=== PATIENT | female | born 1950 | race Two or more races ===

== ENCOUNTER 2020-02-18 23:30 | Inpatient (IN) | payer MEDICAID, OTHER ==
[~2020-02-18] VITALS: Ht 162.6 cm; Wt 70.8 kg
[2020-02-19 00:54] LABS: HEMATOCRIT. 32.9 % (36.0-48.0); HEMOGLOBIN. 10.6 g/dL (12.0-16.0); MEAN CORPUSCULAR HEMOGLOBIN 26.1 pg (28.0-32.0); MEAN CORPUSCULAR VOLUME 80.7 fL (81.0-99.0); MEAN PLATELET VOLUME 9.2 fl (7.4-10.4); PLATELET 445 x1000/uL (130-400); RED BLOOD CELL COUNT 4.08 mill/uL (4.2-5.4); RED CELL DISTRIBUTION WIDTH 15.2 % (11.6-14.6)
[2020-02-19 01:01] LABS: CHLORIDE 98 mEq/L (98-107)
[2020-02-19 01:03] LABS: PROTHROMBIN TIME 10.1 sec (9.6-11.0)
[2020-02-19] MEDS ORDERED: SODIUM CHLORIDE 0.9% 1000ML BAG (SEPSIS BOLUS) IV ONE (02:00)
[2020-02-19] MEDS ORDERED: CEFTRIAXONE 1 G PREMIX 50 ML IV ONE (02:00)
[2020-02-19 05:21] LABS: PLATELET ESTIMATE INCREASED
[2020-02-19] MEDS ORDERED: CEFTRIAXONE 2 G PREMIX 50 ML IV SCH (06:00)
[2020-02-19] MEDS ORDERED: DEXTROSE 50% WATER 50ML SYRINGE IV PRN (06:00)
[2020-02-19] MEDS ORDERED: ONDANSETRON HCL 4MG/2ML INJ IV PRN (06:00)
[2020-02-19 07:07] VITALS: BP 166/77
[2020-02-19] MEDS: INSULIN LISPRO 100 UNITS/ML SUBCUT SCH ×4 (07:55→20:30)
[2020-02-19 08:00] VITALS: BP_SYST 139; BP_SYST 151; BP_SYST 159; BP_DIAS 71; BP_DIAS 77; BP_DIAS 84
[2020-02-19] MEDS: BLOOD SUGAR DIAGNOSTIC STRIP TEST SCH ×4 (08:08→20:06)
[2020-02-19] MEDS ORDERED: ATOR10TA69 PO (08:21)
[2020-02-19] MEDS ORDERED: TAMS-11 PO (08:21)
[2020-02-19] MEDS ORDERED: TAMSULOSIN HCL 0.4MG SR CAPSULE PO SCH (09:00)
[2020-02-19] MEDS ORDERED: AMLODIPINE 5MG TABLET PO SCH (09:00)
[2020-02-19 09:05] LABS: BASOPHILS % 0.6 % (0.0-2.0); EOSINOPHILS % 1.7 % (0.0-5.0); HEMATOCRIT. 31.6 % (36.0-48.0); HEMOGLOBIN. 10.2 g/dL (12.0-16.0); LYMPHOCYTES % 15.5 % (20.0-50.0); MEAN CORPUSCULAR VOLUME 80.2 fL (81.0-99.0); MEAN PLATELET VOLUME 9.1 fl (7.4-10.4); MONOCYTES % 4.7 % (2.0-8.0); NEUTROPHILS % 77.5 % (40.0-76.0); PLATELET 433 x1000/uL (130-400); RED BLOOD CELL COUNT 3.93 mill/uL (4.2-5.4); RED CELL DISTRIBUTION WIDTH 14.9 % (11.6-14.6)
[2020-02-19 09:10] LABS: CHLORIDE 98 mEq/L (98-107)
[2020-02-19] MEDS: ACETAMINOPHEN 325MG TABLET PO PRN (09:34)
[2020-02-19] MEDS: HEPARIN 5000 UNITS/ML VIAL SUBCUT SCH ×2 (09:35→20:15)
[2020-02-19] MEDS ORDERED: SODIUM CHLORIDE 0.9% 1,000 ML IV SCH (11:15)
[2020-02-19] MEDS ORDERED: MAGNESIUM HYDROXIDE 400MG/5ML 30ML UDC PO PRN (11:30)
[2020-02-19] MEDS ORDERED: DOCUSATE SODIUM 100MG CAPSULE PO PRN (11:30)
[2020-02-19 12:00] VITALS: BP 142/70
[2020-02-19] MEDS: SODIUM CHLORIDE 0.45% 1,000 ML IV SCH (12:33)
[2020-02-19] MEDS: INSULIN GLARGINE UD 100 UNITS/ML SYR SUBCUT SCH (13:38)
[2020-02-19 15:54] LABS: CLARITY URINE CLOUDY (CLEAR); COLOR URINE ORANGE (YELLOW); KETONES URINE NEGATIVE (NEGATIVE); LEUKOCYTE ESTERASE URINE 3+ (NEGATIVE); NITRITE URINE POSITIVE (NEGATIVE); OCCULT BLOOD URINE 3+ (NEGATIVE); PROTEIN URINE 2+ (NEGATIVE); SPECIFIC GRAVITY URINE 1.008 (1.005-1.030)
[2020-02-19 16:00] VITALS: BP 133/70
[2020-02-19 20:00] VITALS: BP_SYST 143; BP_SYST 144; BP_DIAS 70; BP_DIAS 71
[2020-02-19] MEDS ORDERED: SENNOSIDES/DOCUSATE SOD 8.6/50MG TABLET PO PRN (21:00)
[2020-02-20] VITALS: BP 137/73
[2020-02-20] MEDS ORDERED: CEFTRIAXONE 2 G in DEXTROSE 5% WATER 50 ML IV SCH (01:00)
[2020-02-20] MEDS: SODIUM CHLORIDE 0.45% 1,000 ML IV SCH (03:28)
[2020-02-20 04:00] VITALS: BP 144/67
[2020-02-20 06:14] LABS: CHLORIDE 98 mEq/L (98-107)
[2020-02-20] MEDS: BLOOD SUGAR DIAGNOSTIC STRIP TEST SCH ×4 (06:19→19:38)
[2020-02-20] MEDS: INSULIN LISPRO 100 UNITS/ML SUBCUT SCH ×4 (06:19→19:47)
[2020-02-20 06:23] LABS: BASOPHILS % 0.6 % (0.0-2.0); EOSINOPHILS % 4.8 % (0.0-5.0); HEMATOCRIT. 28.7 % (36.0-48.0); HEMOGLOBIN. 9.3 g/dL (12.0-16.0); MEAN PLATELET VOLUME 9.5 fl (7.4-10.4); MONOCYTES % 8.5 % (2.0-8.0); NEUTROPHILS % 65.1 % (40.0-76.0); PLATELET 373 x1000/uL (130-400); RED BLOOD CELL COUNT 3.59 mill/uL (4.2-5.4); RED CELL DISTRIBUTION WIDTH 14.8 % (11.6-14.6)
[2020-02-20 08:00] VITALS: BP 148/86
[2020-02-20] MEDS: HEPARIN 5000 UNITS/ML VIAL SUBCUT SCH ×2 (08:31→19:46)
[2020-02-20] MEDS: AMLODIPINE 2.5MG TABLET PO SCH (08:43)
[2020-02-20] MEDS: ACETAMINOPHEN 325MG TABLET PO PRN ×2 (09:18→22:59)
[2020-02-20 09:45] LABS: CREATINE KINASE 20 IU/L (26-192)
[2020-02-20] MEDS: INSULIN GLARGINE UD 100 UNITS/ML SYR SUBCUT SCH (10:18)
[2020-02-20] MEDS: SODIUM CHLORIDE 0.9% 1,000 ML IV SCH ×2 (10:30→23:55)
[2020-02-20] MEDS ORDERED: REGADENOSON 0.4 MG/5 ML IV NR (12:00)
[2020-02-20 16:00] VITALS: BP 148/69
[2020-02-20 20:00] VITALS: BP_SYST 148; BP_SYST 154; BP_DIAS 67; BP_DIAS 69
[2020-02-20] MEDS ORDERED: ATORVASTATIN CALCIUM 10MG TABLET PO SCH (21:00)
[2020-02-21] VITALS (8 sets, daily range): BP systolic 136–166; BP diastolic 60–79
[2020-02-21] MEDS ORDERED: CEFEPIME 1,000 MG in DEXTROSE 5% WATER 50 ML IV SCH (04:00)
[2020-02-21] MEDS: INSULIN LISPRO 100 UNITS/ML SUBCUT SCH ×2 (05:29→12:17)
[2020-02-21] MEDS: BLOOD SUGAR DIAGNOSTIC STRIP TEST SCH ×2 (05:29→12:05)
[2020-02-21 06:54] LABS: BASOPHILS % 0.7 % (0.0-2.0); EOSINOPHILS % 8.1 % (0.0-5.0); HEMATOCRIT. 28.2 % (36.0-48.0); HEMOGLOBIN. 9.3 g/dL (12.0-16.0); LYMPHOCYTES % 25.6 % (20.0-50.0); MEAN CORPUSCULAR HEMOGLOBIN 26.3 pg (28.0-32.0); MEAN CORPUSCULAR VOLUME 79.6 fL (81.0-99.0); MEAN PLATELET VOLUME 9.2 fl (7.4-10.4); MONOCYTES % 9.2 % (2.0-8.0); NEUTROPHILS % 56.4 % (40.0-76.0); PLATELET 385 x1000/uL (130-400); RED BLOOD CELL COUNT 3.54 mill/uL (4.2-5.4); RED CELL DISTRIBUTION WIDTH 14.9 % (11.6-14.6)
[2020-02-21 06:58] LABS: CHLORIDE 105 mEq/L (98-107)
[2020-02-21 07:07] LABS: LDL CHOLESTEROL 43 mg/dL (5-100)
[2020-02-21 07:09] LABS: HDL CHOLESTEROL 45 mg/dL (40-59)
[2020-02-21] MEDS ORDERED: INSULIN GLARGINE UD 100 UNITS/ML SYR SUBCUT SCH (10:00)
[2020-02-21] MEDS ORDERED: REGADENOSON 0.4 MG/5 ML IV ONE (10:01)
[2020-02-21] MEDS: HEPARIN 5000 UNITS/ML VIAL SUBCUT SCH (12:17)
[2020-02-21] MEDS: AMLODIPINE 2.5MG TABLET PO SCH (12:18)
[2020-02-21] MEDS ORDERED: LANTUSUD SUBCUT (14:38)
[2020-02-21] MEDS ORDERED: SENN-3 PO (14:38)
[2020-02-21] MEDS ORDERED: AMLO2.5T45 PO (14:38)
[2020-02-21] MEDS ORDERED: FOSF3PAC MT (15:34)
[2020-02-21] MEDS ORDERED: MEROPENEM 1,000 MG in SODIUM CHLORIDE 0.9% 100 ML IV SCH (16:00)
[2020-02-22] MEDS ORDERED: INSULIN GLARGINE UD 100 UNITS/ML SYR SUBCUT SCH (10:00)
== END 2020-02-21 18:15 | disposition home or self-care (01) | DRG 720 ==
LOC: ER 23:30 → 8WST 02-19 02:35 → ENRESERV 02-19 03:48
PROVIDERS: ADMIT Internal Medicine; ATTEND Internal Medicine
DX: A41.51 Sepsis due to Escherichia coli [E. coli] (principal); N17.0 Acute kidney failure with tubular necrosis; E11.22 Type 2 diabetes mellitus with diabetic chronic kidney disease; E11.65 Type 2 diabetes mellitus with hyperglycemia; E87.1 Hypo-osmolality and hyponatremia; I95.1 Orthostatic hypotension; N12 Tubulo-interstitial nephritis, not specified as acute or chronic; D64.9 Anemia, unspecified; G90.8 Other disorders of autonomic nervous system; Z16.12 Extended spectrum beta lactamase (ESBL) resistance; R65.20 Severe sepsis without septic shock; N18.9 Chronic kidney disease, unspecified; I12.9 Hypertensive chronic kidney disease with stage 1 through stage 4 chronic kidney disease, or unspecified chronic kidney disease; Z93.6 Other artificial openings of urinary tract status; Z79.4 Long term (current) use of insulin; Z79.82 Long term (current) use of aspirin; Z79.899 Other long term (current) drug therapy; Z87.442 Personal history of urinary calculi; Z68.26 Body mass index [BMI] 26.0-26.9, adult; Z96.0 Presence of urogenital implants; N13.6 Pyonephrosis; E44.0 Moderate protein-calorie malnutrition
CPT/HCPCS: 36415; 71045; 74176; 76770; 78452; 80048; 80053; 80061; 81003; 82550; 82962; 83036; 83605; 83735; 83880; 83930; 84484; 85025; 86850; 86870; 86900; 87077; 87186; 93005; 93017; 93306; 97162; 99291; A9500; J0692; J0696; J1644; J1815; J2185; J2785; J7030; J7050; J7060

== ENCOUNTER 2022-04-24 17:10 | Inpatient (IN) | payer MEDICAID ==
[~2022-04-24] VITALS: Ht 320 cm; Wt 85.9 kg
[~2022-04-24 17:10] MED LIST: AMLO2.5T45 PO; ASPI-1406 PO; ATOR10TA69 PO; FOSF3PAC MT; GLIP5TAB12 PO; LANTUSUD SUBCUT; LEVO250T74 MT; LOSA100T32 PO; SENN-3 PO; TAMS-11 PO
[2022-04-24 21:19] LABS: BASOPHILS % 0.9 % (0.0-2.0); EOSINOPHILS % 4.3 % (0.0-5.0); HEMOGLOBIN. 8.7 g/dL (12.0-16.0); LYMPHOCYTES % 16.6 % (20.0-50.0); MEAN CORPUSCULAR HEMOGLOBIN 28.1 pg (28.0-32.0); MEAN CORPUSCULAR VOLUME 83.8 fL (81.0-99.0); MEAN PLATELET VOLUME 7.3 fl (7.4-10.4); NEUTROPHILS % 70.2 % (40.0-76.0); PLATELET 333 x1000/uL (130-400); RED CELL DISTRIBUTION WIDTH 14.9 % (11.6-14.6)
[2022-04-24 21:29] LABS: CHLORIDE 107 mEq/L (98-107)
[2022-04-24] MEDS ORDERED: ACETAMINOPHEN 325MG TABLET PO ONE (21:45)
[2022-04-24 21:53] LABS: CLARITY URINE TURBID (CLEAR); COLOR URINE YELLOW (YELLOW); KETONES URINE NEGATIVE (NEGATIVE); LEUKOCYTE ESTERASE URINE 3+ (NEGATIVE); NITRITE URINE NEGATIVE (NEGATIVE); OCCULT BLOOD URINE 3+ (NEGATIVE); PH URINE 5.5 (4.5-8.0); PROTEIN URINE 2+ (NEGATIVE); SPECIFIC GRAVITY URINE 1.009 (1.005-1.030); UROBILINOGEN URINE 0.2 E.U./dL (0.2-1.0)
[2022-04-24] MEDS ORDERED: CEFTRIAXONE 1 G PREMIX 50 ML IV ONE (22:45)
[2022-04-25] MEDS ORDERED: MORPHINE SULFATE 2 MG/ML CPJ (NOT FOR IM USE) IV PRN (10:15)
[2022-04-25] MEDS ORDERED: IPRATROPIUM/ALBUTEROL 0.5-3(2.5)MG/3ML NEB HHN PRN (10:15)
[2022-04-25] MEDS ORDERED: ACETAMINOPHEN 325MG TABLET PO PRN (10:15)
[2022-04-25] MEDS ORDERED: CEFTRIAXONE 1 G PREMIX 50 ML IV SCH (10:15)
[2022-04-25] MEDS: SODIUM CHLORIDE 0.9% 1,000 ML IV SCH ×2 (12:46→20:05)
[2022-04-25] MEDS ORDERED: SODIUM POLYSTYRENE SULFONATE 15 G/60 ML BOT PO NR (13:49)
[2022-04-25] MEDS: ONDANSETRON HCL 4MG/2ML INJ IV PRN (15:18)
[2022-04-25 17:38] LABS: PROTHROMBIN TIME 10.9 sec (9.6-11.0)
[2022-04-25] MEDS ORDERED: CEFTRIAXONE 1,000 MG in DEXTROSE 5% WATER 50 ML IV SCH (20:00)
[2022-04-26] VITALS (19 sets, daily range): BP systolic 140–177; BP diastolic 70–104
[2022-04-26 04:49] LABS: BASOPHILS % 0.6 % (0.0-2.0); EOSINOPHILS % 3.2 % (0.0-5.0); HEMATOCRIT. 21.6 % (36.0-48.0); HEMOGLOBIN. 7.1 g/dL (12.0-16.0); MEAN CORPUSCULAR HEMOGLOBIN 28.3 pg (28.0-32.0); MEAN CORPUSCULAR VOLUME 85.4 fL (81.0-99.0); MEAN PLATELET VOLUME 8.2 fl (7.4-10.4); MONOCYTES % 9.4 % (2.0-8.0); NEUTROPHILS % 70.8 % (40.0-76.0); PLATELET 265 x1000/uL (130-400); RED BLOOD CELL COUNT 2.52 mill/uL (4.2-5.4)
[2022-04-26 04:54] LABS: CHLORIDE 107 mEq/L (98-107)
[2022-04-26] MEDS ORDERED: NALOXONE HCL 0.4MG/ML VIAL IV PRN (08:00)
[2022-04-26] MEDS ORDERED: SODIUM POLYSTYRENE SULFONATE 15 G/60 ML BOT PO NR (08:00)
[2022-04-26 08:32] LABS: CREATINE KINASE 35 IU/L (26-192)
[2022-04-26] MEDS: SODIUM BICARBONATE 650 MG TABLET PO SCH ×3 (09:00→16:59)
[2022-04-26] MEDS ORDERED: FENTANYL CITRATE/PF 50MCG/ML 2ML VIAL ONE (09:29)
[2022-04-26] MEDS ORDERED: LIDOCAINE HCL 1% 10 MG/ML 10ML VIAL ONE (09:29)
[2022-04-26] MEDS ORDERED: IOHEXOL-300 50 ML BOTTLE IV ONE (09:31)
[2022-04-26] MEDS ORDERED: MIDAZOLAM HCL 2 MG/2 ML VIAL ONE (09:45)
[2022-04-26] MEDS ORDERED: MIDAZOLAM HCL 2 MG/2 ML VIAL IV ONE (10:15)
[2022-04-26] MEDS ORDERED: FENTANYL CITRATE/PF 50MCG/ML 2ML VIAL IV ONE (10:15)
[2022-04-26] MEDS ORDERED: ONDANSETRON HCL 4MG/2ML INJ IV NR (11:15)
[2022-04-26] MEDS: SODIUM CHLORIDE 0.9% 1,000 ML IV SCH ×2 (11:28→17:56)
[2022-04-26] MEDS ORDERED: PHENYLEPHRINE 50 MG in DEXT 5% WATER 245 ML IV PRN (11:30)
[2022-04-26] MEDS ORDERED: ONDANSETRON HCL 4MG/2ML INJ IM NR (11:45)
[2022-04-26] MEDS ORDERED: SODIUM CHLORIDE 0.9% 500 ML IV NR (11:45)
[2022-04-26] MEDS: AMPICILLIN SOD/SULBACTAM NA 1.5 G in SODIUM CHLORIDE 0.9% 50 ML IV SCH ×2 (12:00→23:55)
[2022-04-27] VITALS (10 sets, daily range): BP systolic 113–138; BP diastolic 55–77
[2022-04-27 05:12] LABS: HEMATOCRIT. 22.5 % (36.0-48.0); HEMOGLOBIN. 7.4 g/dL (12.0-16.0); MEAN CORPUSCULAR HEMOGLOBIN 27.9 pg (28.0-32.0); MEAN CORPUSCULAR VOLUME 84.6 fL (81.0-99.0); MEAN PLATELET VOLUME 8.1 fl (7.4-10.4); PLATELET 251 x1000/uL (130-400); RED BLOOD CELL COUNT 2.67 mill/uL (4.2-5.4); RED CELL DISTRIBUTION WIDTH 15.2 % (11.6-14.6)
[2022-04-27 06:50] LABS: PLATELET ESTIMATE NORMAL
[2022-04-27] MEDS: SODIUM CHLORIDE 0.9% 1,000 ML IV SCH ×2 (11:10→23:26)
[2022-04-27] MEDS: SODIUM BICARBONATE 650 MG TABLET PO SCH ×3 (11:10→17:25)
[2022-04-27] MEDS: AMPICILLIN SOD/SULBACTAM NA 1.5 G in SODIUM CHLORIDE 0.9% 50 ML IV SCH ×2 (12:50→23:26)
[2022-04-27] MEDS: ONDANSETRON HCL 4MG/2ML INJ IV PRN (17:33)
[2022-04-28] VITALS (11 sets, daily range): BP systolic 110–145; BP diastolic 52–76
[2022-04-28 08:01] LABS: BASOPHILS % 0.3 % (0.0-2.0); HEMATOCRIT. 22.2 % (36.0-48.0); HEMOGLOBIN. 7.2 g/dL (12.0-16.0); LYMPHOCYTES % 11.8 % (20.0-50.0); MEAN CORPUSCULAR HEMOGLOBIN 27.4 pg (28.0-32.0); MEAN CORPUSCULAR VOLUME 84.1 fL (81.0-99.0); MEAN PLATELET VOLUME 8.8 fl (7.4-10.4); MONOCYTES % 4.7 % (2.0-8.0); NEUTROPHILS % 79.2 % (40.0-76.0); PLATELET 281 x1000/uL (130-400); RED BLOOD CELL COUNT 2.64 mill/uL (4.2-5.4)
[2022-04-28] MEDS: SODIUM BICARBONATE 650 MG TABLET PO SCH ×3 (08:43→17:18)
[2022-04-28] MEDS ORDERED: SODIUM POLYSTYRENE SULFONATE 15 G/60 ML BOT PO NR (11:00)
[2022-04-28] MEDS: AMPICILLIN SOD/SULBACTAM NA 1.5 G in SODIUM CHLORIDE 0.9% 50 ML IV SCH (11:43)
[2022-04-28] MEDS: MEROPENEM 500 MG in SODIUM CHLORIDE 0.9% 50 ML IV SCH (17:18)
[2022-04-29] VITALS (11 sets, daily range): BP systolic 117–165; BP diastolic 52–92
[2022-04-29] MEDS: SODIUM CHLORIDE 0.9% 1,000 ML IV SCH ×2 (01:45→06:30)
[2022-04-29] MEDS: MEROPENEM 500 MG in SODIUM CHLORIDE 0.9% 50 ML IV SCH ×2 (06:29→17:42)
[2022-04-29 06:40] LABS: BASOPHILS % 0.5 % (0.0-2.0); EOSINOPHILS % 6.1 % (0.0-5.0); HEMATOCRIT. 21.2 % (36.0-48.0); HEMOGLOBIN. 7.1 g/dL (12.0-16.0); LYMPHOCYTES % 13.1 % (20.0-50.0); MEAN CORPUSCULAR HEMOGLOBIN 28.2 pg (28.0-32.0); MEAN CORPUSCULAR VOLUME 84.5 fL (81.0-99.0); MEAN PLATELET VOLUME 8.5 fl (7.4-10.4); NEUTROPHILS % 74.3 % (40.0-76.0); PLATELET 287 x1000/uL (130-400); RED BLOOD CELL COUNT 2.51 mill/uL (4.2-5.4); RED CELL DISTRIBUTION WIDTH 14.8 % (11.6-14.6)
[2022-04-29] MEDS: SODIUM BICARBONATE 650 MG TABLET PO SCH ×3 (08:38→17:41)
[2022-04-29 18:02] LABS: CREATININE URINE (RAW) 22.7 mg/dl
[2022-04-29] MEDS: EPOETIN ALFA-EPBX 4,000 UNIT/ML VIAL SUBCUT SCH (20:57)
[2022-04-29] MEDS: DIPHENHYDRAMINE 50MG/ML VIAL IV PRN (23:20)
[2022-04-30] VITALS (11 sets, daily range): BP systolic 139–161; BP diastolic 39–80
[2022-04-30] MEDS: SODIUM CHLORIDE 0.9% 1,000 ML IV SCH ×2 (03:33→13:57)
[2022-04-30] MEDS: MEROPENEM 500 MG in SODIUM CHLORIDE 0.9% 50 ML IV SCH ×2 (05:51→17:26)
[2022-04-30 06:29] LABS: BASOPHILS % 0.7 % (0.0-2.0); EOSINOPHILS % 8.4 % (0.0-5.0); HEMATOCRIT. 21.5 % (36.0-48.0); HEMOGLOBIN. 7.2 g/dL (12.0-16.0); LYMPHOCYTES % 16.1 % (20.0-50.0); MEAN CORPUSCULAR VOLUME 84.1 fL (81.0-99.0); MEAN PLATELET VOLUME 8.5 fl (7.4-10.4); MONOCYTES % 8.1 % (2.0-8.0); NEUTROPHILS % 66.7 % (40.0-76.0); PLATELET 275 x1000/uL (130-400); RED BLOOD CELL COUNT 2.56 mill/uL (4.2-5.4); RED CELL DISTRIBUTION WIDTH 14.4 % (11.6-14.6)
[2022-04-30] MEDS: SODIUM BICARBONATE 650 MG TABLET PO SCH ×3 (08:05→17:25)
[2022-04-30] MEDS ORDERED: LIDOCAINE HCL 1% 10 MG/ML 10ML VIAL ONE ×2 (12:01→13:12)
[2022-04-30] MEDS ORDERED: SUCRALFATE 1 G/10 ML UDC PO SCH (17:30)
[2022-05-01] VITALS (17 sets, daily range): BP systolic 137–180; BP diastolic 60–86
[2022-05-01] MEDS: DIPHENHYDRAMINE 50MG/ML VIAL IV PRN (01:57)
[2022-05-01] MEDS: SODIUM CHLORIDE 0.9% 1,000 ML IV SCH ×3 (01:57→10:22)
[2022-05-01] MEDS: MEROPENEM 500 MG in SODIUM CHLORIDE 0.9% 50 ML IV SCH ×2 (04:26→17:34)
[2022-05-01 07:00] LABS: BASOPHILS % 0.7 % (0.0-2.0); EOSINOPHILS % 8.3 % (0.0-5.0); HEMATOCRIT. 21.1 % (36.0-48.0); LYMPHOCYTES % 25.3 % (20.0-50.0); MEAN CORPUSCULAR HEMOGLOBIN 28.2 pg (28.0-32.0); MEAN CORPUSCULAR VOLUME 84.9 fL (81.0-99.0); MEAN PLATELET VOLUME 8.3 fl (7.4-10.4); MONOCYTES % 9.7 % (2.0-8.0); PLATELET 271 x1000/uL (130-400); RED BLOOD CELL COUNT 2.49 mill/uL (4.2-5.4); RED CELL DISTRIBUTION WIDTH 14.5 % (11.6-14.6)
[2022-05-01] MEDS: SODIUM BICARBONATE 650 MG TABLET PO SCH ×2 (08:37→12:58)
[2022-05-01 16:23] LABS: TOTAL IRON BINDING CAPACITY 201 ug/dL (250-450)
[2022-05-01 16:48] LABS: VITAMIN B12 SERUM 370 pg/mL (211-911)
[2022-05-01 16:51] LABS: FERRITIN 623 ng/mL (10-291)
[2022-05-01] MEDS: EPOETIN ALFA-EPBX 4,000 UNIT/ML VIAL SUBCUT SCH (21:33)
[2022-05-01] MEDS: CLONIDINE 0.1MG TABLET PO PRN (21:34)
[2022-05-02] VITALS (7 sets, daily range): BP systolic 145–189; BP diastolic 67–88
[2022-05-02] MEDS: SODIUM CHLORIDE 0.9% 1,000 ML IV SCH (02:18)
[2022-05-02] MEDS: MEROPENEM 500 MG in SODIUM CHLORIDE 0.9% 50 ML IV SCH ×2 (05:16→17:19)
[2022-05-02 10:04] LABS: HEMATOCRIT 27.1 % (36.0-48.0); HEMOGLOBIN 9.3 g/dL (12.0-16.0)
[2022-05-02] MEDS: AMLODIPINE 5MG TABLET PO SCH (11:03)
[2022-05-02] MEDS: CLONIDINE 0.1MG TABLET PO PRN ×2 (13:08→20:57)
[2022-05-02] MEDS ORDERED: DEXTROSE 50% WATER 50ML SYRINGE IV PRN (17:15)
[2022-05-02] MEDS: BLOOD SUGAR DIAGNOSTIC STRIP TEST SCH ×2 (17:27→20:56)
[2022-05-02] MEDS: INSULIN LISPRO 100 UNITS/ML SUBCUT SCH ×2 (17:41→20:56)
[2022-05-03] VITALS: BP 166/70
[2022-05-03 04:00] VITALS: BP 153/110
[2022-05-03] MEDS: MEROPENEM 500 MG in SODIUM CHLORIDE 0.9% 50 ML IV SCH ×2 (05:39→17:03)
[2022-05-03 06:05] LABS: HEMATOCRIT. 26.3 % (36.0-48.0); HEMOGLOBIN. 8.8 g/dL (12.0-16.0); MEAN CORPUSCULAR HEMOGLOBIN 27.9 pg (28.0-32.0); MEAN CORPUSCULAR VOLUME 83.1 fL (81.0-99.0); MEAN PLATELET VOLUME 8.3 fl (7.4-10.4); PLATELET 289 x1000/uL (130-400); RED BLOOD CELL COUNT 3.16 mill/uL (4.2-5.4); RED CELL DISTRIBUTION WIDTH 14.5 % (11.6-14.6)
[2022-05-03 08:00] VITALS: BP 163/106
[2022-05-03] MEDS: BLOOD SUGAR DIAGNOSTIC STRIP TEST SCH ×4 (08:48→21:00)
[2022-05-03] MEDS: AMLODIPINE 5MG TABLET PO SCH (08:51)
[2022-05-03] MEDS: INSULIN LISPRO 100 UNITS/ML SUBCUT SCH ×4 (08:52→22:27)
[2022-05-03] MEDS: CLONIDINE 0.1MG TABLET PO PRN (11:18)
[2022-05-03 12:00] VITALS: BP 162/108
[2022-05-03] MEDS: HYDRALAZINE HCL 25MG TABLET PO SCH ×2 (15:37→22:22)
[2022-05-03 16:00] VITALS: BP 152/74
[2022-05-03 17:06] LABS: PLATELET ESTIMATE NORMAL
[2022-05-03 20:00] VITALS: BP 179/77
[2022-05-04] VITALS: BP 155/70
[2022-05-04] MEDS: HYDRALAZINE HCL 25MG TABLET PO SCH ×2 (05:50→14:32)
[2022-05-04] MEDS: MEROPENEM 500 MG in SODIUM CHLORIDE 0.9% 50 ML IV SCH (05:50)
[2022-05-04] MEDS: BLOOD SUGAR DIAGNOSTIC STRIP TEST SCH ×2 (07:30→11:45)
[2022-05-04 08:00] VITALS: BP 148/74
[2022-05-04] MEDS: INSULIN LISPRO 100 UNITS/ML SUBCUT SCH ×2 (09:21→14:35)
[2022-05-04] MEDS ORDERED: AMLODIPINE 5MG TABLET PO SCH (09:30)
[2022-05-04 12:00] VITALS: BP 155/85
[2022-05-04 14:00] VITALS: BP 174/78
[2022-05-04 15:37] VITALS: BP 155/85
[2022-05-04] MEDS ORDERED: AMLO5TAB88 PO (15:51)
[2022-05-04] MEDS ORDERED: HYDR-4134 PO (15:51)
== END 2022-05-04 18:29 | disposition home health service (06) | DRG 720 ==
LOC: ER 17:10 → MICUSO 04-25 01:06 → ENRESERV 04-26 09:14 → 5EST 04-27 11:14
PROVIDERS: ADMIT Internal Medicine; ATTEND Internal Medicine
PROC: 0T9430Z Drainage of Left Kidney Pelvis with Drainage Device, Percutaneous Approach (ICD-10-PCS; principal; 2022-04-26)
PROC: BT12ZZZ Fluoroscopy of Left Kidney (ICD-10-PCS; 2022-04-26)
PROC: 02HV33Z Insertion of Infusion Device into Superior Vena Cava, Percutaneous Approach (ICD-10-PCS; 2022-04-30)
PROC: B518ZZA Fluoroscopy of Superior Vena Cava, Guidance (ICD-10-PCS; 2022-04-30)
PROC: B548ZZA Ultrasonography of Superior Vena Cava, Guidance (ICD-10-PCS; 2022-04-30)
PROC: 30233N1 Transfusion of Nonautologous Red Blood Cells into Peripheral Vein, Percutaneous Approach (ICD-10-PCS; 2022-05-01)
DX: A41.50 Gram-negative sepsis, unspecified (principal); N17.0 Acute kidney failure with tubular necrosis; R65.21 Severe sepsis with septic shock; E46 Unspecified protein-calorie malnutrition; E11.649 Type 2 diabetes mellitus with hypoglycemia without coma; E87.1 Hypo-osmolality and hyponatremia; I50.30 Unspecified diastolic (congestive) heart failure; I13.0 Hypertensive heart and chronic kidney disease with heart failure and stage 1 through stage 4 chronic kidney disease, or unspecified chronic kidney disease; D63.1 Anemia in chronic kidney disease; N12 Tubulo-interstitial nephritis, not specified as acute or chronic; E11.22 Type 2 diabetes mellitus with diabetic chronic kidney disease; B96.20 Unspecified Escherichia coli [E. coli] as the cause of diseases classified elsewhere; Z20.822 Contact with and (suspected) exposure to COVID-19; N13.1 Hydronephrosis with ureteral stricture, not elsewhere classified; N18.9 Chronic kidney disease, unspecified; N39.0 Urinary tract infection, site not specified; N35.92 Unspecified urethral stricture, female; E87.5 Hyperkalemia; I95.1 Orthostatic hypotension; Z16.12 Extended spectrum beta lactamase (ESBL) resistance; Z93.6 Other artificial openings of urinary tract status
CPT/HCPCS: 36415; 36573; 50432; 74176; 80048; 80053; 81003; 82550; 82575; 82607; 82728; 82746; 82962; 83036; 83540; 83550; 83605; 84145; 85014; 85018; 85025; 86850; 86900; 86920; 87077; 87186; 87426; 93005; 93306; 93970; 99152; 99153; 99285; C1725; C1729; C1769; J0295; J0696; J0885; J1200; J1815; J2185; J2250; J2270; J2405; J3010; J3490; J7030; J7060; P9016; Q9967; G0500